=== PATIENT | male | born 1985 | race Caucasian/White ===

== ENCOUNTER 2020-06-08 11:08 | Emergency (ER) | payer OTHER ==
--- NOTE | 2020-06-08 11:17 | ED Physician Documentation ---
PD HPI LOWER EXT INJURY - Stated complaint Stated Complaint: LEFT ANKLE PAIN - History obtained from History obtained from: Patient - History of Present Illness PD HPI LOW EXT INJURY LOCATION: Left, Ankle Type of injury: Twist (His ankle twisted when he ran into a pothole and had abrupt pain at the lateral ankle. It is continued to hurt with range of motion. He has been able to walk reasonably well. However has persisted with pain and swelling so he is concerned.) Where injury occurred: Street Timing - onset: How many days ago (9) Timing - duration: Days (9) Timing - details: Abrupt onset, Still present Improved by: Rest Worsened by: Moving, Other (twisting of ankle and torsional movement.) Associated symptoms: Swelling. No: Weakness, Numbness Similar symptoms before: Has not had sx before Recently seen: Clinic (He got his flu shot 2 days ago and told the Corpman about his ankle and was told "if you are able to walk on it is not broken".) Review of Systems Neurologic: denies: Focal weakness, Numbness PD PAST MEDICAL HISTORY - Past Medical History Past Medical History: No PD ED PE NORMAL - Vitals Vital signs reviewed: Yes - General General: Alert and oriented X 3, No acute distress, Well developed/nourished - Derm Derm: Normal color, Warm and dry - Extremities Extremities: Other (The lateral malleolus at the distal fibula shows localized tenderness and swelling with faint bruising. There is pain with inversion testing with mild laxity. Medially not tender in the Achilles is normal) - Neuro Neuro: Alert and oriented X 3, No motor deficit, No sensory deficit, Normal speech Results - Vitals Vitals: Vital Signs - 24 hr 06/08/20 06/08/20 06/08/20 11:13 11:20 12:16 Temperature 36.6 C Heart Rate 61 66 66 Respiratory 16 16 16 Rate Blood Pressure 139/80 H 136/100 H 144/92 H O2 Saturation 100 99 100 Oxygen O2 Source Room air - Rads (name of study) left ankle Radiology: Prelim report reviewed (Comminuted nondisplaced fracture at the distal fibula), See rad report PD MEDICAL DECISION MAKING - ED course Complexity details: reviewed results, considered differential, d/w patient Departure - Departure Disposition: 01 Home, Self Care Clinical Impression: Fracture of distal fibula Qualifiers: Encounter type: initial encounter Fracture type: closed Fracture morphology: unspecified fracture morphology Laterality: left Qualified Code(s): S82.832A - Other fracture of upper and lower end of left fibula, initial encounter for closed fracture Condition: Stable Record reviewed to determine appropriate education?: Yes Instructions: ED Fx Ankle Lateral Malleolus Follow-Up: ROBB WEBSTER MD [Primary Care Provider] - Comments: There is a small avulsion fracture at the end of the fibula. This is the attachment point for some ligaments. We would use support the ankle a little more aggressively for this. Use the walking boot when up and around for 3 to 4 weeks. Follow-up with your primary care and/or orthopedics for reevaluation in about a week to see if it is healing well enough. Along the way they may downgrade to a less restrictive support brace. Initially though this will be better for three- dimensional support. Ibuprofen 3 times a day as needed for pain. Add Tylenol if needed. Ice elevate and rest the ankle often after you have been on it. Minimal walking and standing for the next 1-2 weeks. Forms: Activity restrictions Discharge Date/Time: 06/08/20 12:25
--- NOTE | 2020-06-08 12:05 | XRAY Report ---
PROCEDURE: Ankle 3 View LT INDICATIONS: lateral ankle pain after twisting injury TECHNIQUE: 3 views of the ankle were acquired. COMPARISON: None FINDINGS: Bones: There is a comminuted fracture seen of the distal aspect of the fibula. No associated ankle m ortise widening is seen. The talar dome demonstrates an unremarkable appearance. No suspicious bony lesions. Soft tissues: Associated soft tissue swelling is seen laterally. IMPRESSION: There is a comminuted fracture seen at the distal tip of the lateral malleolus. Reviewed by: Gorge Dowd MD on 06/08/2020 11:03 AM CLAIRE Approved by: Gorge Dowd MD on 06/08/2020 11:03 AM CLAIRE Station ID: [id number]
[2020-06-08 12:19] VITALS: BP 144/92
== END 2020-06-08 12:25 | disposition home or self-care (01) ==
LOC: ED 11:08
DX: S82.832A Other fracture of upper and lower end of left fibula, initial encounter for closed fracture (principal); X50.1XXA Overexertion from prolonged static or awkward postures, initial encounter; Y93.02 Activity, running; Y92.410 Unspecified street and highway as the place of occurrence of the external cause
CPT/HCPCS: 99282; 99283